=== PATIENT | female | born 1980 | race Two or more races ===

== ENCOUNTER 2018-04-11 09:09 | Emergency (ER) | payer SELFPAY ==
[~2018-04-11] VITALS: Ht 160 cm; Wt 63.5 kg
[2018-04-11 09:29] VITALS: BP 117/82
== END 2018-04-11 10:37 | disposition home or self-care (01) ==
LOC: ER 09:09
DX: H66.92 Otitis media, unspecified, left ear (principal); Z90.89 Acquired absence of other organs

== ENCOUNTER 2020-04-04 16:13 | Emergency (ER) | payer MEDICAID ==
[~2020-04-04] VITALS: Ht 157.5 cm; Wt 67.6 kg
[2020-04-04] MEDS ORDERED: ASPirin 81 mg TAB PO ONE (16:45)
[2020-04-04] MEDS ORDERED: PANTOPRAZOLE 40 MG/10 ML VIAL INJ IV ONE (16:45)
[2020-04-04] MEDS ORDERED: ONDANSETRON HCL 4 MG/2 ML VIAL IV ONE (16:45)
[2020-04-04] MEDS ORDERED: MORPHINE SULF INJ 2 MG/ML SYRINGE 1ML IV ONE (16:45)
[2020-04-04 17:33] LABS: Urine WBC None Seen /hpf (0 - 5)
[2020-04-04 17:39] LABS: Basophils # (auto) 0 10 ^3/uL (0-0.2); Basophils % (auto) 0.5 % (0.0-2.0); Eosinophils # (auto) 0.1 10 ^3/uL (0-0.8); Eosinophils % (auto) 1.2 % (0.0-7.0); Hematocrit 38.4 % (36.0-46.0); Hemoglobin 12.9 g/dL (12.2-16.2); Lymphocytes # (auto) 2.3 10 ^3/uL (0.4-5.4); Mean Corpuscular Hemoglobin 27.2 pg (28.0-32.0); Mean Corpuscular Hgb Conc. 33.6 g/dL (32.0-36.0); Mean Corpuscular Volume 80.9 fL (80.0-100.0); Monocytes # (auto) 0.4 10 ^3/uL (0-1.3); Neutrophils % (auto) 52.3 % (37.0-80.0); Nucleated Red Blood Cells % 0.1 %; Platelet Count (auto) 221 10^3/uL (140-450); Red Blood Cells 4.75 10^6/uL (4.0-5.20); Red Cell Distribution Width 13.2 % (11.8-14.3); White Blood Cell 5.8 10^3/uL (4.4-10.8)
[2020-04-04 17:51] LABS: Urine Bacteria NONE SEEN /hpf (None Seen); Urine Blood Negative /uL (Negative); Urine Specific Gravity 1.007 (1.001-1.035)
[2020-04-04 17:59] LABS: Magnesium 2.3 mg/dL (1.6-2.6); Potassium 3.7 mmol/L (3.5-5.1)
[2020-04-04 18:02] LABS: Calcium 8.6 mg/dL (8.5-10.1)
[2020-04-04 18:02] LABS: Amphetamine Screen, Urine NEGATIVE (NEGATIVE); Barbiturate Scree,Urine NEGATIVE (NEGATIVE); Benzodiazephine Screen, Urine NEGATIVE (NEGATIVE); Cannabinoid Screen, Urine NEGATIVE (NEGATIVE); Cocaine Screen, Urine NEGATIVE (NEGATIVE); Opiate Scree,Urine NEGATIVE (NEGATIVE); Phencyclidine Screen, Urine NEGATIVE (NEGATIVE)
[2020-04-04 18:06] LABS: Bilirubin, Total 0.4 mg/dL (0.2-1.0)
[2020-04-04 18:19] LABS: Albumin 0.5 g/dL (3.4-5.0)
[2020-04-04 20:00] VITALS: BP 103/68
== END 2020-04-04 20:19 | disposition home or self-care (01) ==
LOC: ER 16:13
DX: K42.9 Umbilical hernia without obstruction or gangrene (principal); K57.30 Diverticulosis of large intestine without perforation or abscess without bleeding; E46 Unspecified protein-calorie malnutrition
CPT/HCPCS: 36415; 71046; 74176; 76705; 80053; 80307; 81001; 82150; 83690; 83735; 83880; 84443; 84484; 85025; 93005; 96374; 96375; 99285; C9113; J2270; J2405